=== PATIENT | female | born 1960 | race Caucasian/White ===

== ENCOUNTER 2022-10-05 12:03 | Day surgery (SDC) | payer OTHER ==
[~2022-10-05] VITALS: Ht 160 cm; Wt 80.7 kg
[2022-10-05] MEDS ORDERED: LIDOCAINE 2% 100 MG/5 ML UJET TP ONE (13:57)
[2022-10-05] MEDS ORDERED: fentaNYL citrate 0.05 MG/ML VIAL ONE (13:57)
[2022-10-05] MEDS ORDERED: fentaNYL citrate 0.05 MG/ML VIAL IVP ONE (14:55)
== END 2022-10-05 13:26 | disposition home or self-care (01) ==
LOC: MDS 12:03 → MMU 12:04 → MDS 13:26
PROVIDERS: ATTEND Internal Medicine Gastroenterology
DX: Z12.11 Encounter for screening for malignant neoplasm of colon (principal); K63.5 Polyp of colon; Z80.0 Family history of malignant neoplasm of digestive organs; E78.5 Hyperlipidemia, unspecified; Z79.899 Other long term (current) drug therapy; Z20.822 Contact with and (suspected) exposure to COVID-19
CPT/HCPCS: 45385; 87426; J3010